=== PATIENT | male | born 1980 | race Hispanic/Latino ===

== ENCOUNTER 2017-04-11 14:10 | Emergency (ER) | payer MEDICAID ==
[2017-04-11 14:16] VITALS: BMI 25.4
[2017-04-11 14:19] VITALS: TEMP 99.2
[2017-04-11] MEDS ORDERED: Sodium Chloride 0.9% 1,000 ML IV STA (14:46)
[2017-04-11 15:01] VITALS: RESP 18
[2017-04-11] MEDS ORDERED: Iohexol 240 (50 ml) ONE (15:23)
[2017-04-11 15:42] LABS: ADD MANUAL DIFF? NO
--- NOTE | 2017-04-11 15:44 | ED PDOC ---
Arrival/HPI - General Historian: Patient - History of Present Illness Time/Duration: < week Symptom Onset: Gradual Symptom Course: Unchanged Quality: Aching Severity Level: 5 Activities at Onset: Rest Context: Home - General Chief Complaint: Abdominal Pain Time Seen by Provider: 04/11/17 14:40 - History of Present Illness Narrative History of Present Illness (Text): 04/11/17 15:36 This is a 36Y M with PMH schizophrenia, anxiety who came to ED for abdominal pain x 3 days. Patient reports he has been having diarrhea and suprapubic pain for the past 3 days. He denies fever, chills, n/v, dysuria, hematuria or penile discharge. He reports that the pain is intermittent and does not radiate. The patient says he has blood on the toilet paper when he wipes. He also says he is not taking his psych medication because his mother told him it was bad for him. He does hear voices but does not have any suicidal or homicidal ideation. ( Aimee Jackson) Past Medical History - Provider Review Nursing Documentation Reviewed: Yes - Psychiatric Hx Depression: No Hx Emotional Abuse: No Hx Physical Abuse: No Hx Substance Use: No - Anesthesia Hx Anesthesia: No - Suicidal Assessment Feels Threatened In Home Enviroment: No Family/Social History - Physician Review Nursing Documentation Reviewed: Yes Family/Social History: No Known Family HX Smoking Status: Light Smoker < 10 Cigarettes Daily Hx Alcohol Use: Yes Frequency of alcohol use: Few days per week Hx Substance Use: No Hx Substance Use Treatment: No Allergies/Home Meds Allergies/Adverse Reactions: Allergies No Known Allergies Allergy (Verified 04/11/17 14:16) Review of Systems - Physician Review All systems were reviewed & negative as marked: Yes - Review of Systems Constitutional: Normal. absent: Fatigue, Fevers Eyes: Normal. absent: Vision Changes ENT: Normal. absent: Hearing Changes Respiratory: Normal. absent: SOB, Cough Cardiovascular: Normal. absent: Chest Pain, Palpitations, Edema Gastrointestinal: Abdominal Pain, Diarrhea. absent: Nausea, Vomiting Genitourinary Male: Normal. absent: Dysuria, Frequency, Hematuria Musculoskeletal: Normal. absent: Arthralgias, Back Pain Skin: Normal. absent: Rash, Pruritis Neurological: Normal. absent: Headache, Dizziness Endocrine: Normal. absent: Diaphoresis Psychiatric: Normal. absent: Anxiety, Depression, Suicidal Ideation Physical Exam Vital Signs Reviewed: Yes Temperature: Afebrile Blood Pressure: Normal Pulse: Regular Respiratory Rate: Normal Appearance: Positive for: Well-Appearing, Non-Toxic, Comfortable Pain Distress: None Mental Status: Positive for: Alert and Oriented X 3 - Systems Exam Head: Present: Atraumatic, Normocephalic Pupils: Present: PERRL Extroacular Muscles: Present: EOMI Conjunctiva: Present: Normal Mouth: Present: Moist Mucous Membranes Neck: Present: Normal Range of Motion Respiratory/Chest: Present: Clear to Auscultation, Good Air Exchange. No: Respiratory Distress, Accessory Muscle Use Cardiovascular: Present: Regular Rate and Rhythm, Normal S1, S2. No: Murmurs Abdomen: Present: Tenderness, Normal Bowel Sounds. No: Distention, Peritoneal Signs, Rebound, Guarding Back: Present: Normal Inspection Upper Extremity: Present: Normal Inspection. No: Cyanosis, Edema Lower Extremity: Present: Normal Inspection. No: Edema Neurological: Present: GCS=15, CN II-XII Intact, Speech Normal Skin: Present: Warm, Dry, Normal Color. 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 Differential Diagnosis included but are not limited to: colitis vs. diverticulitis vs. UTI Plan: -- CBC, CMP, U/A -- EKG -- CT abd/pelvis. -- IVF -- Reassess and disposition Prior Visits: Notes and results from previous visits were reviewed. 04/11/17 15:49 Progress Note: All labs within normal limits. Patient denies having any pain right now. Ct abd/ pelvis within normal limits. 04/11/17 17:47 Re-evaluation: Discussed results and plan with patient. Patient understands results and is agreeable with plan. All questions answered. 04/11/17 17:51 (Aimee Jackson) Patient Seen With Resident: In agreement with resident note which contains more details about the patient. Patient was seen and evaluated with resident. Came up with plan and treatment together. (Obey Painter DO) - Lab Interpretations Lab Results: 04/11/17 15:30 04/11/17 15:30 Lab Results 04/11/17 15:30: Sodium 139, Potassium 4.0, Chloride 104, Carbon Dioxide 27, Anion Gap 12, BUN 10, Creatinine 0.8, Est GFR ( Amer) > 60, Est GFR (Non- Af Amer) > 60, Random Glucose 85, Calcium 9.5, Total Bilirubin 0.6, AST 24, ALT 32, Alkaline Phosphatase 51, Total Protein 7.1, Albumin 4.4, Globulin 2.8, Albumin/Globulin Ratio 1.6, Lipase 199 04/11/17 15:30: WBC 5.8, RBC 4.64, Hgb 14.7, Hct 42.6, MCV 91.8, MCH 31.7, MCHC 34.5, RDW 12.8, Plt Count 218, MPV 11.3 H, Gran % 71.4 H, Lymph % (Auto) 19.0 L , [place] % (Auto) 7.8 H, Eos % (Auto) 1.6, Baso % (Auto) 0.2, Gran # 4.14, Lymph # 1.1 L, [place] # 0.5, Eos # 0.1, Baso # 0.01 04/11/17 15:20: Urine Color Light yellow, Urine Appearance Clear, Urine pH 6.5, Ur Specific [place] 1.010, Urine Protein Negative, Urine Glucose (UA) Negative, Urine Ketones 15 H, Urine Blood Negative, Urine Nitrate Negative, Urine Bilirubin Negative, Urine Urobilinogen 0.2, Ur Leukocyte Esterase Negative - RAD Interpretation Narrative RAD Interpretations (Text): PROCEDURE: CT Abdomen and Pelvis with contrast HISTORY: Unspecified abdominal pain. COMPARISON: None. TECHNIQUE: Contrast dose: 100 cc Omnipaque 300. Radiation dose: Total exam DLP = mGy-cm. This CT exam was performed using one or more of the following dose reduction techniques: Automated exposure control, adjustment of the mA and/or kV according to patient size, and/or use of iterative reconstruction technique. FINDINGS: LOWER THORAX: Unremarkable. LIVER: Hepatic steatosis. No focal masses. No intrahepatic bile duct dilatation or perihepatic ascites. With focal fatty sparing falciform ligament region. GALLBLADDER AND BILE DUCTS: Unremarkable. PANCREAS: Unremarkable. No gross lesion or ductal dilatation. SPLEEN: Unremarkable. ADRENALS: Unremarkable. No mass. KIDNEYS AND URETERS: Unremarkable. No hydronephrosis. No solid mass. VASCULATURE: Unremarkable. No aortic aneurysm. BOWEL: Unremarkable. No obstruction. No gross mural thickening. APPENDIX: Normal appendix. PERITONEUM: Unremarkable. No free fluid. No free air. LYMPH NODES: Unremarkable. No enlarged lymph nodes. BLADDER: Unremarkable. REPRODUCTIVE: Unremarkable. BONES: No acute fracture. OTHER FINDINGS: None. IMPRESSION: No acute findings related to/accounting for the clinical presentation. (Aimee Jackson) Radiology Orders: 04/11/17 15:16 ABD PELVIS PO & IV CONTRAST [CT] Stat - EKG Interpretation EKG Interpretation (Text): 04/11/17 16:42 HR 54. Intervals normal. Sinus bradycardia with incomplete RBBB. (Aimee Jackson) - Medication Orders Current Medication Orders: Discontinued Medications Sodium Chloride (Sodium Chloride 0.9%) 1,000 mls @ 1,000 mls/hr IV .Q1H STA Stop: 04/11/17 15:45 Last Admin: 04/11/17 14:50 Dose: 1,000 mls/hr Iohexol (Omnipaque 240 (50 Ml)) Confirm Administered Dose 50 ml .ROUTE .STK-MED ONE Stop: 04/11/17 15:24 Iohexol (Omnipaque 350 100 Ml) Confirm Administered Dose 350 mg .ROUTE .STK-MED ONE Stop: 04/11/17 17:10 Disposition/Present on Arrival - Present on Arrival Any Indicators Present on Arrival: No History of DVT/PE: No History of Uncontrolled Diabetes: No Urinary Catheter: No History of Decub. Ulcer: No History Surgical Site Infection Following: None - Disposition Have Diagnosis and Disposition been Completed?: Yes Disposition Time: 17:43 Patient Plan: Discharge - Disposition Diagnosis: Diarrhea Disposition: HOME/ ROUTINE Condition: GOOD Discharge Instructions (ExitCare): Loperamide (By mouth), Acute Diarrhea (ED) Print Language: ARABIC Additional Instructions: Mr. Davila, thank you for letting us take care of you today. Your provider was Dr. Jackson. You were treated for abdominal pain and diarrhea. The emergency medical care you received today was directed at your acute symptoms. If you were prescribed any medication, please fill it and take as directed. It may take several days for your symptoms to resolve. Return to the Emergency Department if your symptoms worsen, do not improve, or if you have any other problems. Please contact your doctor or call one of the physicians/clinics you have been referred to that are listed on the Patient Visit Information form that is included in your discharge packet. Bring any paperwork you were given at discharge with you along with any medications you are taking to your follow up visit. Our treatment cannot replace ongoing medical care by a primary care provider (PCP) outside of the emergency department. Thank you for allowing the [facility] team to be part of your care today. If you had an X-Ray or CT scan: A Radiologist will review the ED reading if any change in treatment is needed we will contact you. Prescriptions: Loperamide [Imodium] 2 mg PO Q8H PRN #15 cap PRN Reason: Diarrhea Referrals: PCP,NO [Primary Care Provider] - Follow up with primary [facility] [Outside] - Follow up with primary
[2017-04-11 15:51] LABS: BASO # 0.01 K/mm3 (0.0-2.0); BASO % 0.2 % (0.0-3.0); EOS # 0.1 (0.0-0.7); EOS % 1.6 % (1.5-5.0); GRAN # 4.14 (1.4-6.5); GRAN % 71.4 % (50.0-68.0); HEMATOCRIT 42.6 % (42.0-52.0); LYMPH # 1.1 (1.2-3.4); MEAN CELL VOLUME 91.8 fL (80.0-105.0); MEAN CORPUSCULAR HEMOGLOBIN 31.7 pg (25.0-35.0); MEAN CORPUSCULAR HGB CONC 34.5 g/dl (31.0-37.0); MEAN PLATELET VOLUME 11.3 fl (7.0-11.0); MONO # 0.5 (0.1-0.6); MONO % 7.8 % (1.0-6.0); PLATELET COUNT 218 10^3/uL (120.0-450.0); RED CELL DISTRIBUTION WIDTH 12.8 % (11.5-14.5); WHITE BLOOD COUNT 5.8 10^3/ul (4.5-11.0)
[2017-04-11 15:53] LABS: PH,URINE 6.5 (4.7-8.0); URINE BILIRUBIN NEGATIVE (NEGATIVE); URINE BLOOD NEGATIVE (NEGATIVE); URINE GLUCOSE (UA) NEGATIVE (NEGATIVE); URINE KETONE 15 mg/dL (NEGATIVE); URINE LEUKOCYTE ESTERASE NEGATIVE Leu/uL (NEGATIVE); URINE PROTEIN NEGATIVE mg/dL (<30 mg/dL); URINE UROBILINOGEN 0.2 E.U./dL (<1 E.U./dL)
[2017-04-11 15:58] LABS: URINE APPEARANCE CLEAR (CLEAR); URINE COLOR LIGHT YELLOW (YELLOW)
[2017-04-11 16:01] LABS: ALB/GLOB RATIO 1.6 (1.1-1.8); ALKALINE PHOSPHATASE 51 U/L (38-133); ALT/SGPT 32 U/L (7-56); AST/SGOT 24 U/L (15-59); BILIRUBIN,TOTAL 0.6 mg/dL (0.2-1.3); BLOOD UREA NITROGEN 10 mg/dL (7-21); CALCIUM 9.5 mg/dL (8.4-10.5); CARBON DIOXIDE 27 mmol/L (21-33); CHLORIDE 104 mmol/L (98-107); GFR AFRICAN-AMERICAN > 60; GLUCOSE,RANDOM 85 mg/dL (70-110); LIPASE 199 U/L (23-300); SODIUM 139 mmol/L (132-148); TOTAL PROTEIN 7.1 g/dL (5.8-8.3)
[2017-04-11] MEDS ORDERED: Iohexol 350 MG/100 ML VIAL ONE (17:09)
--- NOTE | 2017-04-11 17:39 | CT ---
PROCEDURE: CT Abdomen and Pelvis with contrast HISTORY: Unspecified abdominal pain. COMPARISON: None. TECHNIQUE: Contrast dose: 100 cc Omnipaque 300. Radiation dose: Total exam DLP = mGy-cm. This CT exam was performed using one or more of the following dose reduction techniques: Automated exposure control, adjustment of the mA and/or kV according to patient size, and/or use of iterative reconstruction technique. FINDINGS: LOWER THORAX: Unremarkable. LIVER: Hepatic steatosis. No focal masses. No intrahepatic bile duct dilatation or perihepatic ascites. With focal fatty sparing falciform ligament region. GALLBLADDER AND BILE DUCTS: Unremarkable. PANCREAS: Unremarkable. No gross lesion or ductal dilatation. SPLEEN: Unremarkable. ADRENALS: Unremarkable. No mass. KIDNEYS AND URETERS: Unremarkable. No hydronephrosis. No solid mass. VASCULATURE: Unremarkable. No aortic aneurysm. BOWEL: Unremarkable. No obstruction. No gross mural thickening. APPENDIX: Normal appendix. PERITONEUM: Unremarkable. No free fluid. No free air. LYMPH NODES: Unremarkable. No enlarged lymph nodes. BLADDER: Unremarkable. REPRODUCTIVE: Unremarkable. BONES: No acute fracture. OTHER FINDINGS: None. IMPRESSION: No acute findings related to/accounting for the clinical presentation.
[2017-04-11 18:51] VITALS: BP 115/78; PULSE 70; O2SAT 97
--- NOTE | 2017-04-12 14:13 | CARD ---
APPROVED REPORT EKG Measurement Heart [id number] [id number] <Conclusion> Sinus bradycardia Incomplete right bundle branch block Borderline ECG
== END 2017-04-11 18:51 | disposition home or self-care (01) ==
LOC: ED 14:10
DX: R19.7 Diarrhea, unspecified (principal)
CPT/HCPCS: 74177; 80053; 81003; 83690; 85025; 87086; 93005; 96360; 99285; J7040; Q9966; Q9967

== ENCOUNTER 2017-04-18 21:02 | Emergency (ER) | payer MEDICAID ==
[2017-04-18 21:16] VITALS: BMI 22.9
--- NOTE | 2017-04-18 21:21 | ED PDOC ---
Arrival/HPI - General Chief Complaint: Anxiety Time Seen by Provider: 04/18/17 21:05 Historian: Patient - History of Present Illness Narrative History of Present Illness (Text): 04/18/17 21:16 36 year old male whose past medical history includes anxiety and schizophrenia presents to the emergency department complaining of panic attack after drinking 1 beer. He states this feels like his previous panic attacks. Denies suicidal ideation or homicidal ideation. Patient states he feels safe at home. Time/Duration: Prior to Arrival Symptom Onset: Sudden Symptom Course: Unchanged Associated Symptoms (Text): None Past Medical History - Provider Review Nursing Documentation Reviewed: Yes - Cardiac Hx Cardiac Disorders: No - Pulmonary Hx Respiratory Disorders: No - Neurological Hx Neurological Disorder: No - HEENT Hx HEENT Disorder: No - Renal Hx Renal Disorder: No - Endocrine/Metabolic Hx Endocrine Disorders: No - Hematological/Oncological Hx Blood Disorders: No - Integumentary Hx Dermatological Disorder: No - Musculoskeletal/Rheumatological Hx Musculoskeletal Disorders: No - Gastrointestinal Hx Gastrointestinal Disorders: No - Genitourinary/Gynecological Hx Genitourinary Disorders: No - Psychiatric Hx Depression: No Hx Emotional Abuse: No Hx Panic Disorder: Yes Hx Physical Abuse: No Hx Substance Use: No - Anesthesia Hx Anesthesia: No - Suicidal Assessment Feels Threatened In Home Enviroment: No Family/Social History - Physician Review Nursing Documentation Reviewed: Yes Family/Social History: Unknown Family HX Smoking Status: Light Smoker < 10 Cigarettes Daily Hx Alcohol Use: Yes Hx Substance Use: No Hx Substance Use Treatment: No Allergies/Home Meds Allergies/Adverse Reactions: Allergies No Known Allergies Allergy (Verified 04/18/17 21:07) Home Medications: Home Meds Medication Instructions Recorded Confirmed No Known Home Med 04/18/17 04/18/17 Review of Systems - Physician Review All systems were reviewed & negative as marked: Yes Physical Exam - Physical Exam Narrative Physical Exam (Text): - Review of Systems Constitutional: Normal. absent: Fatigue, Weight Change, Fevers Eyes: Normal ENT: Normal Respiratory: Normal absent: SOB, Cough, Sputum Cardiovascular: Normal absent: Chest pain, Palpitations, Syncope Gastrointestinal: Normal absent: Abdominal pain, Diarrhea, Nausea, Vomiting Genitourinary: Normal. absent: Dysuria, Frequency, Hematuria Musculoskeletal: Normal. absent: Arthralgias, Back Pain, Neck Pain Skin: Normal Neurological: Normal absent: Focal Weakness Endocrine: Normal Hemo/Lymphatic: Normal Psychiatric: Panic attack - Physical exam Patient appears age appropriate, speaking full sentences without difficulty - Systems Exam Head: Present: Atraumatic, Normocephalic Pupils: Present: PERRL Extraocular Muscles: Present: EOMI Conjunctiva: Present: Normal Mouth: Present: Moist Mucous Membranes Neck: Present: Normal Range of Motion. No: MIDLINE TENDERNESS, Paraspinal Tenderness Respiratory/Chest: Present: Clear to Auscultation, Good Air Exchange. No: Respiratory Distress, Accessory Muscle Use, Tachypneic Cardiovascular: Present: Regular Rate and Rhythm, Normal S1, S2, Peripheral Pulses Present. No: Murmurs Abdomen: Present: Normal Bowel Sounds, No: Tenderness, Peritoneal Signs, Rebound, Guarding, Distention Back: Present: Normal Inspection. No: Midline Tenderness, Paraspinal Tenderness Upper Extremity: Present: Normal Inspection. No: Cyanosis, Edema Lower Extremity: Present: Normal Inspection. No: Edema Neurological: Present: GCS=15, Speech Normal, cranial nerves II through XII fully intact with no cerebellar abnormality, neuro-sensory fully intact. No focal neurological deficits. Skin: Present: Warm, Dry, Normal Color. No: Rashes Lymphatic: Present: OX3, NI, NC Psychiatric: Present: Alert, Oriented x 3, Normal Concentration Vital Signs Reviewed: Yes Vital Signs Temp Pulse Resp BP Pulse Ox 04/18/17 21:53 95 H 18 131/94 H 95 04/18/17 21:08 98.6 F 100 H 25 H 131/94 H 100 04/18/17 21:06 98.6 F 100 H 25 H 131/94 H 100 Temperature: Afebrile Blood Pressure: Normal Pulse: Regular Respiratory Rate: Tachypneic Appearance: Positive for: Well-Appearing, Non-Toxic, Comfortable Pain Distress: None Mental Status: Positive for: Alert and Oriented X 3 Medical Decision Making ED Course and Treatment: Impression: 36 year old male whose past medical history includes anxiety and schizophrenia presents to the emergency department complaining of panic attack after drinking 1 beer. On physical exam, patient is tremulous. Patient denies any suicidal or homicidal ideations. Plan: -- Ativan -- Reassess and disposition Prior Visits: Notes and results from previous visits were reviewed. Patient last seen in the ED on 04/11/17 for abdominal pain, sent home after no acute findings on labs and CT scan. Progress Notes: 04/18/17 22:02 on reeval, pt states he feels better, anxiety almost resolved asking to see PES worker psych clearance ordered 04/18/17 22:30 patient signed out to Dr. Cardoso in stable condition, pending PES eval, dispo - RAD Interpretation Radiology Orders: 04/18/17 22:01 CHEST PORTABLE [RAD] Stat - Medication Orders Current Medication Orders: Discontinued Medications Lorazepam (Ativan) 2 mg IM ONCE ONE Stop: 04/18/17 21:12 Last Admin: 04/18/17 21:20 Dose: 2 mg Lorazepam (Ativan) Confirm Administered Dose 2 mg .ROUTE .STK-MED ONE Stop: 04/18/17 21:13 Last Admin: 04/18/17 21:14 Dose: - Scribe Statement The provider has reviewed the documentation as recorded by the Germain Licona Provider Scribe Attestation: All medical record entries made by the Scribe were at my direction and personally dictated by me. I have reviewed the chart and agree that the record accurately reflects my personal performance of the history, physical exam, medical decision making, and the department course for this patient. I have also personally directed, reviewed, and agree with the discharge instructions and disposition. Disposition/Present on Arrival - Present on Arrival Any Indicators Present on Arrival: No History of DVT/PE: No History of Uncontrolled Diabetes: No Urinary Catheter: No History of Decub. Ulcer: No History Surgical Site Infection Following: None - Disposition Have Diagnosis and Disposition been Completed?: Yes Diagnosis: Anxiety Disposition Time: 22:30 Condition: STABLE
--- NOTE | 2017-04-18 22:23 | ED PDOC ---
Physical Exam - Physical Exam Narrative Physical Exam (Text): 04/18/17 22:23 Signed out to me at end of shift pending PES evaluation. EKG NSR 85 bpm, no ST/T wave changes. CXR no acute disease. 04/19/17 01:13 Medically cleared. PES called. 04/19/17 03:41 Evaluated by PES, Dr. Piña recommends discharge and has arranged a follow up appointment tomorrow. Vital Signs Temp Pulse Resp BP Pulse Ox 04/19/17 03:30 64 18 154/69 H 97 04/19/17 01:55 98.2 F 85 17 135/71 100 04/18/17 21:53 95 H 18 131/94 H 95 04/18/17 21:08 98.6 F 100 H 25 H 131/94 H 100 04/18/17 21:06 98.6 F 100 H 25 H 131/94 H 100 Temperature: Afebrile Blood Pressure: Hypertensive Pulse: Tachycardic Respiratory Rate: Tachypneic Appearance: Positive for: Well-Appearing, Non-Toxic, Comfortable Pain Distress: None Mental Status: Positive for: Alert and Oriented X 3 Medical Decision Making - Lab Interpretations Lab Results: 04/18/17 22:20 04/18/17 22:20 Lab Results 04/18/17 23:57: Urine Opiates Screen Negative, Urine Methadone Screen Negative, Ur Barbiturates Screen Negative, Ur Phencyclidine Scrn Negative, Ur Amphetamines Screen Negative, U Benzodiazepines Scrn Negative, U Oth Cocaine Metabols Negative, U Cannabinoids Screen Negative 04/18/17 23:57: Urine Color Yellow, Urine Appearance Clear, Urine pH 6.0, Ur Specific [place] >= 1.030, Urine Protein Trace H, Urine Glucose (UA) Negative, Urine Ketones 40 H, Urine Blood Negative, Urine Nitrate Negative, Urine Bilirubin Small H, Urine Urobilinogen 1.0 H, Ur Leukocyte Esterase Negative, Urine RBC 0 - 2, Urine WBC 0 - 2, Ur Epithelial Cells None 04/18/17 22:20: Alcohol, Quantitative 19 H 04/18/17 22:20: Salicylates < 1 L, Acetaminophen < 10.0 L 04/18/17 22:20: Sodium 140, Potassium 3.2 L, Chloride 103, Carbon Dioxide 27, Anion Gap 13, BUN 13, Creatinine 0.9, Est GFR ( Amer) > 60, Est GFR (Non- Af Amer) > 60, Random Glucose 93, Calcium 9.5, Total Bilirubin 0.6, AST 25, ALT 34, Alkaline Phosphatase 59, Total Protein 7.2, Albumin 4.4, Globulin 2.8, Albumin/Globulin Ratio 1.6 04/18/17 22:20: WBC 7.5 D, RBC 5.11, Hgb 16.1, Hct 47.3, MCV 92.6, MCH 31.5, MCHC 34.0, RDW 12.8, Plt Count 206, MPV 11.1 H, Gran % 76.5 H, Lymph % (Auto) 14.2 L, [place] % (Auto) 7.5 H, Eos % (Auto) 1.7, Baso % (Auto) 0.1, Gran # 5.71, Lymph # 1.1 L, [place] # 0.6, Eos # 0.1, Baso # 0.01 - RAD Interpretation Radiology Orders: 04/18/17 22:01 CHEST PORTABLE [RAD] Stat - Medication Orders Current Medication Orders: Discontinued Medications Lorazepam (Ativan) 2 mg IM ONCE ONE Stop: 04/18/17 21:12 Last Admin: 04/18/17 21:20 Dose: 2 mg Lorazepam (Ativan) Confirm Administered Dose 2 mg .ROUTE .STK-MED ONE Stop: 04/18/17 21:13 Last Admin: 04/18/17 21:14 Dose: Disposition/Present on Arrival - Present on Arrival Any Indicators Present on Arrival: No History of DVT/PE: No History of Uncontrolled Diabetes: No Urinary Catheter: No History of Decub. Ulcer: No History Surgical Site Infection Following: None - Disposition Have Diagnosis and Disposition been Completed?: Yes Diagnosis: Anxiety Disposition: HOME/ ROUTINE Disposition Time: 03:41 Patient Plan: Discharge Patient Problems: Current Active Problems Problem Status Onset Anxiety Acute Condition: STABLE
[2017-04-18 22:49] LABS: ADD MANUAL DIFF? NO
[2017-04-18 23:08] LABS: HEMATOCRIT 47.3 % (42.0-52.0); MEAN CELL VOLUME 92.6 fL (80.0-105.0); MEAN CORPUSCULAR HEMOGLOBIN 31.5 pg (25.0-35.0); PLATELET COUNT 206 10^3/uL (120.0-450.0); RED CELL DISTRIBUTION WIDTH 12.8 % (11.5-14.5); WHITE BLOOD COUNT 7.5 10^3/ul (4.5-11.0)
[2017-04-18 23:09] LABS: BASO # 0.01 K/mm3 (0.0-2.0); BASO % 0.1 % (0.0-3.0); EOS # 0.1 (0.0-0.7); EOS % 1.7 % (1.5-5.0); GRAN # 5.71 (1.4-6.5); GRAN % 76.5 % (50.0-68.0); LYMPH # 1.1 (1.2-3.4); LYMPH % 14.2 % (22.0-35.0); MEAN PLATELET VOLUME 11.1 fl (7.0-11.0); MONO # 0.6 (0.1-0.6); MONO % 7.5 % (1.0-6.0)
[2017-04-18 23:10] LABS: ALB/GLOB RATIO 1.6 (1.1-1.8); ALKALINE PHOSPHATASE 59 U/L (38-133); ALT/SGPT 34 U/L (7-56); AST/SGOT 25 U/L (15-59); BILIRUBIN,TOTAL 0.6 mg/dL (0.2-1.3); BLOOD UREA NITROGEN 13 mg/dL (7-21); CALCIUM 9.5 mg/dL (8.4-10.5); CARBON DIOXIDE 27 mmol/L (21-33); CHLORIDE 103 mmol/L (98-107); GFR AFRICAN-AMERICAN > 60; GLUCOSE,RANDOM 93 mg/dL (70-110); POTASSIUM 3.2 mmol/L (3.6-5.0); SODIUM 140 mmol/L (132-148); TOTAL PROTEIN 7.2 g/dL (5.8-8.3)
[2017-04-19 00:15] LABS: URINE BILIRUBIN SMALL (NEGATIVE); URINE BLOOD NEGATIVE (NEGATIVE); URINE GLUCOSE (UA) NEGATIVE (NEGATIVE); URINE KETONE 40 mg/dL (NEGATIVE); URINE LEUKOCYTE ESTERASE NEGATIVE Leu/uL (NEGATIVE); URINE PROTEIN TRACE mg/dL (<30 mg/dL)
[2017-04-19 00:19] LABS: URINE APPEARANCE CLEAR (CLEAR); URINE COLOR YELLOW (YELLOW)
[2017-04-19 01:09] LABS: URINE RBC 0 - 2 /hpf (0-2)
[2017-04-19 01:10] LABS: URINE WBC 0 - 2 /hpf (0-6)
[2017-04-19 01:56] VITALS: TEMP 98.2
[2017-04-19 03:31] VITALS: BP 154/69; PULSE 64; RESP 18; O2SAT 97
--- NOTE | 2017-04-19 15:50 | CARD ---
APPROVED REPORT EKG Measurement Heart [id number] <Conclusion> Normal sinus rhythm Incomplete right bundle branch block Borderline ECG
--- NOTE | 2017-04-20 08:13 | RAD ---
PROCEDURE: CHEST RADIOGRAPH, 1 VIEW HISTORY: med clearence COMPARISON: None available. FINDINGS: LUNGS: Clear. PLEURA: No pneumothorax or pleural fluid seen. CARDIOVASCULAR: Normal. OSSEOUS STRUCTURES: No significant abnormalities. VISUALIZED UPPER ABDOMEN: Normal. OTHER FINDINGS: None. IMPRESSION: No active disease.
== END 2017-04-19 03:48 | disposition home or self-care (01) ==
LOC: ED 21:02
DX: F41.9 Anxiety disorder, unspecified (principal); F20.9 Schizophrenia, unspecified
CPT/HCPCS: 71010; 80053; 80320; 80324; 80329; 80345; 80346; 80349; 80353; 80358; 80361; 81001; 83992; 85025; 90791; 93005; 96372; 99284; J2060

== ENCOUNTER 2017-09-23 20:16 | Inpatient (IN) | payer MEDICAID ==
[2017-09-23 20:21] VITALS: BMI 22.8
--- NOTE | 2017-09-23 20:29 | ED PDOC ---
Arrival/HPI <SheilaAlvin parks - Last Filed: 09/23/17 21:17> <Jesse Ravi - Last Filed: 09/23/17 23:07> - General Chief Complaint: Anxiety Time Seen by Provider: 09/23/17 20:17 - History of Present Illness Narrative History of Present Illness (Text): CC: Anxiety This patient is a 37yo M who has been seen at [facility] multiple times in the past for anxiety attacks who is coming in with the feeling of anxiety. Patient states he was at home watching tv and felt like he would be safer at the hospital. Denies intent to hurt himself or others, is not hearing or seeing voices. Does not have an outpatient psychiatrist. Is not on any medications that he can name Collateral info from mother; patient was apparently in [place] recently and one of his friends recommended that he stop taking his olanzapine because medicines are bad. Mom noticed that son has lost a lot of weight, internally preocuppied, keeping to himself more than usual. no other family history of mental illness from mom. 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 Patients mother also states he was taking Carbamazepine intermittently that she was giving him but did not see any results from him taking that medicine. 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, denies smoking (although says he smokes in the computer from previous visits)/etoh/illicit drugs (Jesse Ravi) Past Medical History - Provider Review Nursing Documentation Reviewed: Yes - Travel History Have you recently traveled outside [place] w/in the past 3 mons?: No - Past History Past History: No Previous - Cardiac Hx Cardiac Disorders: No - Pulmonary Hx Respiratory Disorders: No - Neurological Hx Neurological Disorder: No - HEENT Hx HEENT Disorder: No - Renal Hx Renal Disorder: No - Endocrine/Metabolic Hx Endocrine Disorders: No - Hematological/Oncological Hx Blood Disorders: No - Integumentary Hx Dermatological Disorder: No - Musculoskeletal/Rheumatological Hx Musculoskeletal Disorders: No - Gastrointestinal Hx Gastrointestinal Disorders: No - Genitourinary/Gynecological Hx Genitourinary Disorders: No - Psychiatric Hx Depression: No Hx Emotional Abuse: No Hx Panic Disorder: Yes Hx Physical Abuse: No Hx Substance Use: No - Anesthesia Hx Anesthesia: No - Suicidal Assessment Feels Threatened In Home Enviroment: No <Jesse Ravi - Last Filed: 09/23/17 23:07> Family/Social History - Physician Review Nursing Documentation Reviewed: Yes Family/Social History: No Known Family HX Smoking Status: Light Smoker < 10 Cigarettes Daily Hx Alcohol Use: Yes Hx Substance Use: No Hx Substance Use Treatment: No <Jesse Ravi - Last Filed: 09/23/17 23:07> Allergies/Home Meds <Alvin Fishman - Last Filed: 09/23/17 21:17> <Jesse Ravi - Last Filed: 09/23/17 23:07> Allergies/Adverse Reactions: Allergies No Known Allergies Allergy (Verified 04/18/17 21:07) Home Medications: Home Meds Medication Instructions Recorded Confirmed No Known Home Med 04/18/17 09/23/17 Review of Systems - Review of Systems Constitutional: absent: Fatigue, Weight Change, Fevers Eyes: absent: Vision Changes, Photophobia ENT: absent: Hearing Changes, Tinnitus Respiratory: absent: SOB, Cough Cardiovascular: absent: Chest Pain, Palpitations Gastrointestinal: absent: Abdominal Pain Genitourinary Male: absent: Dysuria, Frequency Musculoskeletal: absent: Arthralgias Skin: absent: Rash Neurological: absent: Headache, Dizziness Endocrine: absent: Diaphoresis, Polyuria Hemo/Lymphatic: absent: Adenopathy, Easy Bleeding Psychiatric: Anxiety. absent: Depression, Suicidal Ideation <Jesse Ravi - Last Filed: 09/23/17 23:07> Physical Exam Vital Signs Reviewed: Yes Temperature: Afebrile Blood Pressure: Normal Pulse: Regular Respiratory Rate: Normal Appearance: Positive for: Non-Toxic Mental Status: Positive for: Alert and Oriented X 3 - Systems Exam Head: Present: Atraumatic Pupils: Present: PERRL Extroacular Muscles: Present: EOMI Conjunctiva: Present: Normal Mouth: Present: Moist Mucous Membranes Pharnyx: No: ERYTHEMA, EXUDATE Neck: Present: Normal Range of Motion Respiratory/Chest: Present: Clear to Auscultation. No: Good Air Exchange Cardiovascular: Present: Regular Rate and Rhythm. No: Murmurs Abdomen: No: Tenderness, Distention Back: No: CVA Tenderness Upper Extremity: Present: Normal Inspection. No: Cyanosis, Edema Lower Extremity: Present: Normal Inspection. No: Edema, CALF TENDERNESS Neurological: Present: GCS=15, CN II-XII Intact. No: Speech Normal (speech is depressed, anxious, breathing fast) Skin: Present: Warm Psychiatric: Present: Alert, Oriented x 3, Anxious. No: Normal Insight, Suicidal Ideation, Homicidal Ideation, Delusional <Jesse Ravi - Last Filed: 09/23/17 23:07> Vital Signs Temp Pulse Resp BP Pulse Ox 09/23/17 20:26 98.1 F 76 18 134/85 99 09/23/17 20:20 98.1 F 75 18 134/85 99 Medical Decision Making <Alvin Fishman - Last Filed: 09/23/17 21:17> - Lab Interpretations I have reviewed the lab results: Yes <Jesse Ravi - Last Filed: 09/23/17 23:07> ED Course and Treatment: Patient Seen With Resident: In agreement with resident note. Patient was seen and evaluated with resident, came up with plan and treatment together. A 37 year old male with anxiety. Additional HPI as noted by resident. On physical exam, patient is anxious, depressed and breathing fast. PES will evaluate. Ordered EKG, labs and urinalysis. (Alvin Fishman) 09/23/17 20:32 DD Anxiety attack vs Depression Will have PES evaluate Patient refused PO ativan Pending EKG Dispo and Reassess 09/23/17 21:15 Patient is refusing blood work at this time 09/23/17 22:15 CBC CMP UA Utox and EKG are WNL pending PES 09/23/17 22:32 pending PES 09/23/17 22:46 patient is requesting voluntary admission to the psychiatric unit 09/23/17 23:06 Patient is being voluntarily admitted to psych (Jesse Ravi) - Lab Interpretations Lab Results: 09/23/17 21:00 09/23/17 21:00 Lab Results 09/23/17 21:00: Alcohol, Quantitative < 10 09/23/17 21:00: Salicylates < 1 L, Acetaminophen < 10.0 L 09/23/17 21:00: Sodium 142, Potassium 3.6, Chloride 106, Carbon Dioxide 27, Anion Gap 13, BUN 17, Creatinine 0.7 L, Est GFR ( Amer) > 60, Est GFR ( Non-Af Amer) > 60, Random Glucose 113 H, Calcium 9.8, Total Bilirubin 0.5, AST 22, ALT 37, Alkaline Phosphatase 63, Total Protein 7.1, Albumin 4.4, Globulin 2.7, Albumin/Globulin Ratio 1.6 09/23/17 21:00: Urine Color Yellow, Urine Appearance Clear, Urine pH 6.0, Ur Specific Fowler 1.025, Urine Protein Negative, Urine Glucose (UA) Negative, Urine Ketones Negative, Urine Blood Negative, Urine Nitrate Negative, Urine Bilirubin Negative, Urine Urobilinogen 0.2, Ur Leukocyte Esterase Negative 09/23/17 21:00: WBC 6.2, RBC 4.68, Hgb 14.9, Hct 42.6, MCV 91.0, MCH 31.8, MCHC 35.0, RDW 12.4, Plt Count 232, MPV 11.0, Gran % 60.8, Lymph % (Auto) 29.6, Woods % (Auto) 7.8 H, Eos % (Auto) 1.5, Baso % (Auto) 0.3, Gran # 3.76, Lymph # 1.8, Woods # 0.5, Eos # 0.1, Baso # 0.02 09/23/17 20:30: Urine Opiates Screen Negative, Urine Methadone Screen Negative, Ur Barbiturates Screen Negative, Ur Phencyclidine Scrn Negative, Ur Amphetamines Screen Negative, U Benzodiazepines Scrn Negative, U Oth Cocaine Metabols Negative, U Cannabinoids Screen Negative - RAD Interpretation Radiology Orders: 09/23/17 22:45 HEAD W/O CONTRAST [CT] Stat - Medication Orders Current Medication Orders: Discontinued Medications Lorazepam (Ativan) 1 mg PO ONCE ONE PRN Reason: Protocol Stop: 09/23/17 20:23 - Scribe Statement The provider has reviewed the documentation as recorded by the Scribe <Alvin Fishman - Last Filed: 09/23/17 21:17> <Jesse Ravi - Last Filed: 09/23/17 23:07> - Scribe Statement Michael Lyles All medical record entries made by the Scribe were at my direction and personally dictated by me. I have reviewed the chart and agree that the record accurately reflects my personal performance of the history, physical exam, medical decision making, and the department course for this patient. I have also personally directed, reviewed, and agree with the discharge instructions and disposition. (Alvin Fishman) Disposition/Present on Arrival <Alvin Fishman - Last Filed: 09/23/17 21:17> - Present on Arrival Any Indicators Present on Arrival: No History of DVT/PE: No History of Uncontrolled Diabetes: No Urinary Catheter: No History Surgical Site Infection Following: None - Disposition Have Diagnosis and Disposition been Completed?: Yes Disposition Time: 23:07 Patient Plan: Admission <Jesse Ravi - Last Filed: 09/23/17 23:07> - Disposition Diagnosis: Anxiety, Schizophrenia Disposition: HOSPITALIZED Patient Problems: Current Active Problems Problem Status Onset Anxiety Acute Condition: FAIR Referrals: PCP,NO [Primary Care Provider] - Follow up with primary Forms: [email or web address] (Icelandic)
[2017-09-23 21:46] LABS: BASO # 0.02 K/mm3 (0.0-2.0); BASO % 0.3 % (0.0-3.0); EOS # 0.1 (0.0-0.7); EOS % 1.5 % (1.5-5.0); GRAN # 3.76 (1.4-6.5); GRAN % 60.8 % (50.0-68.0); HEMATOCRIT 42.6 % (42.0-52.0); LYMPH # 1.8 (1.2-3.4); LYMPH % 29.6 % (22.0-35.0); MEAN CORPUSCULAR HEMOGLOBIN 31.8 pg (25.0-35.0); MONO # 0.5 (0.1-0.6); MONO % 7.8 % (1.0-6.0); RED CELL DISTRIBUTION WIDTH 12.4 % (11.5-14.5); WHITE BLOOD COUNT 6.2 10^3/ul (4.5-11.0)
[2017-09-23 21:47] LABS: URINE BILIRUBIN NEGATIVE (NEGATIVE); URINE BLOOD NEGATIVE (NEGATIVE); URINE GLUCOSE (UA) NEGATIVE (NEGATIVE); URINE KETONE NEGATIVE (NEGATIVE); URINE LEUKOCYTE ESTERASE NEGATIVE Leu/uL (NEGATIVE); URINE PROTEIN NEGATIVE mg/dL (<30 mg/dL); URINE UROBILINOGEN 0.2 E.U./dL (<1 E.U./dL)
[2017-09-23 21:49] LABS: URINE APPEARANCE CLEAR (CLEAR); URINE COLOR YELLOW (YELLOW)
[2017-09-23 22:07] LABS: ALB/GLOB RATIO 1.6 (1.1-1.8); ALKALINE PHOSPHATASE 63 U/L (38-126); ALT/SGPT 37 U/L (7-56); AST/SGOT 22 U/L (17-59); BILIRUBIN,TOTAL 0.5 mg/dL (0.2-1.3); BLOOD UREA NITROGEN 17 mg/dL (7-21); CALCIUM 9.8 mg/dL (8.4-10.5); CARBON DIOXIDE 27 mmol/L (21-33); CHLORIDE 106 mmol/L (98-107); GFR AFRICAN-AMERICAN > 60; GLUCOSE,RANDOM 113 mg/dL (70-110); POTASSIUM 3.6 mmol/L (3.6-5.0); SODIUM 142 mmol/L (132-148); TOTAL PROTEIN 7.1 g/dL (5.8-8.3)
[2017-09-24] MEDS ORDERED: Alum-Mag Hydrox-Simethicone Susp (30 mL) PO PRN (00:11)
[2017-09-24] MEDS ORDERED: Magnesium Hydroxide Susp 30 ml UD PO PRN (00:11)
--- NOTE | 2017-09-24 05:57 | PCM.BM ---
Treatment Plan Problems - Problems identified on initial assessmt PANIC ATTACKS Date Initiated: 09/24/17 Time Initiated: 00:00 Assessment reference: NA Status: Active ANXIETY Date Initiated: 09/24/17 Assessment reference: NA Status: Active Treatment assets and liabiliti Patient Assests: adapts well, cooperative, educated, motivated, self-reliant, ADL independent, physically healthy, good support system, cognitively intact Patient Liabilities: financial problems - Milieu Protocol Maintain good personal hygiene: daily Encourage regular showers, every shift Remind patient to perform daily oral care, every shift Assist patient to perform ADL's Maintain personal safety: every shift Educate patient to report safety concerns to staff, every shift Monitor environment for contraband/sharps Medication safety: Monitor for expected outcome, potential side effects: every shift, Assess barriers to learning: every shift, Assess readiness for medication education: every shift Family Contact Family involvement: Family/SO is involved Family contact: Patient agrees to contact Discharge/Continuing Care - Education Needs Education Needs: Patient Medication, Patient Diagnosis/Disease Process, Patient Coping Skills, Patient Health Practices/Safety - Discharge Discharge Criteria: Tolerates medication w/o severe side effects, Free of Suicidal thoughts, Free of Homicidal thoughts, Free of agitation, Normal sleep pattern
[2017-09-24 08:01] LABS: CHOLESTEROL 194 mg/dL (130-200); GLUCOSE,FASTING 95 mg/dL (65-110)
--- NOTE | 2017-09-24 11:54 | CARD ---
APPROVED REPORT EKG Measurement Heart [id number] <Conclusion> Normal sinus rhythm Incomplete right bundle branch block Borderline ECG
--- NOTE | 2017-09-24 20:36 | PCM.PSYCH ---
Initial Psychiatric Evaluation - Initial Psychiatric Evaluation Legal Status: Capacity Chief Complaint (in patient's own words): Vague about indicate some feelings of depression Patient's Reaction to Hospitalization: Patient seems perplexed by entire proceedings History of Present Illness and Precipitating Events: Uncertain at this time the patient appears to be withdrawn, having focusing and concentrating difficulties and is a vague historian with poor insight Current Medications: Active Medications Generic Name Dose Route Start Last Admin Trade Name Freq PRN Reason Stop Dose Admin Acetaminophen 650 mg 09/24/17 00:11 Tylenol 325mg Tab PO Q4H PRN Pain, Mild (1-3) Al Hydrox/Mg Hydrox/Simethicone 30 ml 09/24/17 00:11 Maalox Plus 30 Ml PO DAILY PRN Upset Stomach Clonazepam 0.5 mg 09/24/17 08:00 09/24/17 17:20 Klonopin PO 0.5 mg BID EARL Administration Protocol Magnesium Hydroxide 30 ml 09/24/17 00:11 Milk Of Magnesia PO DAILY PRN Constipation Olanzapine 2.5 mg 09/24/17 00:12 Zyprexa PO HS PRN Anxiety Protocol Olanzapine 5 mg 09/24/17 22:00 Zyprexa PO HS EARL Protocol Ziprasidone 20 mg 09/24/17 00:15 Geodon Inj IM Q8H PRN Agitation Protocol Past Psychiatric History - Past Psychiatric History Prior Professional Help: Not entirely clear at this juncture. Patient has been on Zyprexa in the [facility] Prior Psychiatric Treatment: Unclear at this juncture History of Abuse: Denies but is a poor historian History of ETOH/Drug Use: Has had a history of cannabis, cocaine and possibly heroin abuse History of Family Illness: Patient denies but is a poor historian Pertinent Medical Hx (Current Medical&Sleep Prob, Allergies): Allergies Allergy/AdvReac Type Severity Reaction Status Date / Time No Known Allergies Allergy Verified 09/24/17 00:11 No Known Home Med 04/18/17 Review of Systems - Constitutional Constitutional: UN - EENT Eyes: UNREMARKABLE Ears: UNREMARKABLE Nose/Mouth/Throat: UNREMARKABLE - Cardiovascular Cardiovascular: UNREMARKABLE - Respiratory Respiratory: UNREMARKABLE - Reproductive: Male Reproductive:Male: UNREMARKABLE - Musculoskeletal Musculoskeletal: UNREMARKABLE - Integumentary Integumentary: UNREMARKABLE - Neurological Neurological: UNREMARKABLE - Psychiatric Psychiatric: Anhedonia, Anxiety, Auditory Hallucinations, Behavioral Changes, Change in Appetite, Confusion, Depression, Difficulty Concentrating, Hallucinations, Panic Attacks - Endocrine Endocrine: UNREMARKABLE - Hematologic/Lymphatic Hematologic: UNREMARKABLE Mental Status Examination - Affect Affect: Blunted - Motor Activity Motor Activity: Psychomotor Retardation - Reliability in Providing Information Reliability in Providing Information: Poor, due to alteration in thoughts - Speech Speech: Tangential - Mood Mood: Depressed - Formal Thought Process Formal Thought Process: Hallucinations - Hallucinations/Delusions Hallucinations: Auditory - Obsessions/Compulsions Obsessions: No Compulsions: No - Cognitive Functions Orientation: Person, Place, Situation, Time Sensorium: Alert Attention/Concentration: Easily distracted Estimate of Intelligence: Average Judgement: Imparied, as evidence by: Other - Risk Risk: Suicidal - Strength & Assets Inventory Strength & Assets Inventory: Intelligence, Education, Employment history - Limitations Limitations: Other DSM 5 DX - DSM 5 DSM 5 Diagnosis: Psychosis not otherwise specified Cocaine use disorder Rule out other substance use disorder Rule out schizoaffective disorder - Recommended/Plan of Treatment Treatment Recommendations and Plan of Treatment: Individual and group milieu therapy and pharmacotherapy while patient engages in period of observation Projected ELOS: 7-10 days Prognosis: Guarded Discharge Plan and Discharge Criteria: We'll refer back to local [facility] upon stabilization - Smoking Cessation Smoking Cessation Initiated: No Reason for not providing: Nonsmoker
--- NOTE | 2017-09-25 10:16 | PN ---
DATE: 09/25/2017 LOCATION: The patient is in the [facility] Unit. SUBJECTIVE: The patient was admitted with history of feeling dizzy. The patient has a history of schizophrenia. He is on medications for behavioral disorder. The patient has no past history of diabetes or hypertension. The patient is seen for medical evaluation. Currently, the patient is on Geodon antipsychotic medication, Klonopin 0.5 mg b.i.d. The patient is on Zyprexa p.r.n. The patient is seen and talked to. The patient is comfortable, pleasant. He says that he feels dizzy. PHYSICAL EXAMINATION: VITAL SIGNS: The pulse is 90, blood pressure 116/74, respirations are 20, O2 sat is 100% on room air, and the patient's temperature is 97.8. HEENT: Head is normocephalic. NECK: The thyroid is not enlarged. Carotid pulses present. LUNGS: Trachea is central. Breath sounds are vesicular. No adventitious sounds. HEART: Normal sinus rhythm, S1 and S2 present. No murmur. EKG shows right bundle branch block, which is intermittent. ABDOMEN: Soft. Liver and spleen not palpable. CENTRAL NERVOUS SYSTEM: He is conscious, rational, and oriented at this time, but he has history of schizophrenia and has been treated for that. NEUROLOGIC: The patient's neurological evaluation does not show any evidence of defective VIII nerve clinically. The patient's cranial nerves are intact from II through XII. Sense of smell is present according to the patient. The patient's motor, sensory functions are within normal limits. Examination of the gait is normal. We will evaluate the blood work, follow up, and if the patient has continued dizziness, we will consider giving the patient Antivert, but it is not ordered at this time. LABORATORY DATA: The patient's blood work that is done, his hemoglobin 14.9, his platelet count is 232,000. Chemistry: The patient's GFR is within normal limits. His lipid profile, cholesterol 194, LDL is 130, TSH is 3.48. ASSESSMENT AND PLAN: The medical evaluation shows the patient has dizziness which is nonspecific at this time. The patient has a right bundle branch block, which is not significant clinically at this stage. We will follow up as necessary. Elma Chaves MD Cory # [id number] HARESH
--- NOTE | 2017-09-26 02:41 | PN ---
DATE: The patient is a 37-year-old white male who has had difficulty in focusing, is a poor historian, has a history of cannabis, cocaine and possibly heroin abuse. He has had psychotic episodes since 2012 and saw a psychiatrist at that time with he denying such cognitive defects prior to that. The patient is a [place]. His mood and affect are considered to be flat and blunted, he is isolative and withdrawn and needs encouragements to interact with group. While insisting on leaving, he has refused to sign a 48-hour notice period. He appears to be internally preoccupied and disorganized. His insight and judgment are considered to be poor. He is presently being maintained on Klonopin 0.5 mg b.i.d., Zyprexa 5 mg bedtime. His vital signs are within normal limits. Biochemical profile was within normal limits. RPR nonreactive. Drug screen negative. Urinalysis clear. A biochemical profile has shown an elevated LDH cholesterol of 130 and elevated random glucose of 113. The patient needs continued care for safety of self and others. Martin Barrera MD/ PhD
--- NOTE | 2017-09-26 17:12 | PN ---
The patient is a 37-year-old white male with a history of polysubstance abuse who has been insisting on leaving. The patient is observed to ambulate in the hallway at times and to be isolative. He has been observed to be sleeping while on rounds. He has being maintained on clonidine 0.5 mg b.i.d., Zyprexa 5 mg bedtime. Blood pressure 112/73, pulse 85, temperature 97.8, respiratory rate 20. Given the patient's insistence on leaving, and his lack of focus, irrationality, an attempt was made to have the patient hospitalized in a situation were his treatment needs can more effectively be applied to this resistant patient. Martin Barrera MD/ PhD
[2017-09-27 06:58] VITALS: O2SAT 98
--- NOTE | 2017-09-27 12:50 | PN ---
LOCATION: The patient is in the behavioral care unit, room 518, bed 1, [facility] in [place]. SUBJECTIVE: He was seen this morning. He is quiet. He has no complaints. PHYSICAL EXAMINATION: VITAL SIGNS: His pulse is 73, blood pressure 115/77, respirations are 17, O2 sat 98% on room air. HEENT: Head is normocephalic. LUNGS: Clear. HEART: Normal sinus rhythm. ABDOMEN: Soft. Liver and spleen not palpable. CENTRAL NERVOUS SYSTEM: Nonfocal deficit. MEDICATIONS: The patient's medications consist of Geodon 20 mg q.8 hours. The patient is on Klonopin 0.25 mg b.i.d. He is also placed on 2.5 mg of Zyprexa at nighttime. He is on a regular diet. Continue current management. Medically, he is stable. BLOOD WORK: His hemoglobin is 14.9. Chemistry: Blood sugar is 113. All of the chemical parameters are within normal limits. His condition is clinically stable. His overall prognosis is dependent on his behavioral disorder. Elma Chaves MD MTDAnurag
--- NOTE | 2017-09-27 16:50 | PCM.PYCHPN ---
Psychiatric Progress Note - Psychiatric Progress Note Patient seen today, length of contact: 25 min Patient Chief Complaint: "okay". Problems Identified/Issues Discussed: I recent notes and met with patient at bedside. Patient appears groomed quiet withdrawn and preoccupied. He is unable to tell me which month or year it is. Patient is aware that he is in [place] . Mood is bluntly reported as "okay". Patient reports that he continues to hallucinate and he will not specify what the voices say to him except that he continues to hear "chatter" Staff notes indicate that patient has kept himself and is unwilling to engage in discussion even when encouraged. He's currently awaiting a bed at [place] as he meets involuntary commitment criteria. Diagnostic Results: Psychosis not otherwise specified Cocaine use disorder Rule out other substance use disorder Rule out schizoaffective disorder Medication Change: No Medical Record Reviewed: Yes Mental Status Examination - Cognitive Function Orientation: Person, Place - Mood Mood: Depressed - Affect Affect: Blunted - Speech Speech: Soft - Formal Thought Process Formal Thought Process: Hallucinations ("chatter") - Suicidal Ideation Suicidal Ideation: No - Homicidal Ideation Homicidal Ideation: No Goal/Treatment Plan - Goal/Treatment Plan Progress Toward Problem(s) and Goals/Treatment Plan: * c/w current tx and plan * Vitals reviewed and noted below: Selected Entries 09/26/17 09/26/17 07:00 16:20 Temperature 97.6 F Pulse Rate 110 H 101 H Respiratory 20 16 Rate Blood Pressure 95/65 L 98/65 L
--- NOTE | 2017-09-28 09:48 | PCM.PYCHPN ---
Psychiatric Progress Note - Psychiatric Progress Note Patient seen today, length of contact: 25 min Patient Chief Complaint: "okay, a little better". Problems Identified/Issues Discussed: I recent notes and met with patient at bedside. Staff notes indicate that patient has been anxious, hallucinating and pacing the unit this weekend. He attempted to elope yesterday and required Geodon 20 mg IM X1. He's currently awaiting a bed at [place] as he meets involuntary commitment criteria. He also refused klonopin stating he didn't need it. Patient appears unkempt, quiet withdrawn and preoccupied during my visit. He is also malodorous. Remains superficial. Still unable to provide the correct month but can give me year and location. Mood is bluntly reported as "okay, a little better". Patient reports that he continues to hallucinate and he will not specify what the voices say to him except that he continues to hear "chatter". Patient agreed to EKG and chest X-ray after initially refusing. Diagnostic Results: Psychosis not otherwise specified Cocaine use disorder Rule out other substance use disorder Rule out schizoaffective disorder Medication Change: No Medical Record Reviewed: Yes Mental Status Examination - Cognitive Function Orientation: Person, Place Attention: Poor Concentration: Poor Association: Loose Fund of Knowledge: Poor - Mood Mood: Depressed ( "okay, a little better".) - Affect Affect: Blunted - Speech Speech: Soft - Formal Thought Process Formal Thought Process: Hallucinations ("chatter") - Suicidal Ideation Suicidal Ideation: No - Homicidal Ideation Homicidal Ideation: No Goal/Treatment Plan - Goal/Treatment Plan Progress Toward Problem(s) and Goals/Treatment Plan: * c/w current tx and plan * Appreciate f/u by Dr. Chaves on 09/27/17~patient is medically stable * Vitals reviewed and noted below: Selected Entries 09/27/17 09/27/17 06:57 16:00 Temperature 97.8 F Pulse Rate 73 81 Respiratory 17 Rate Blood Pressure 115/77 95/65 L O2 Sat by Pulse 98 Oximetry * No new weekend labs * Patient is awaiting open bed at [facility] for involuntary transfer
--- NOTE | 2017-09-28 10:51 | RAD ---
HISTORY: medical clearance COMPARISON: Comparison is made to previous study dated 04/18/2017 FINDINGS: LUNGS: No active pulmonary disease. PLEURA: No significant pleural effusion identified, no pneumothorax apparent. CARDIOVASCULAR: Normal. OSSEOUS STRUCTURES: No significant abnormalities. VISUALIZED UPPER ABDOMEN: Normal. OTHER FINDINGS: None. IMPRESSION: No active disease.
[2017-09-29 07:12] VITALS: RESP 18
[2017-09-29 19:45] VITALS: BP 118/72; PULSE 75; TEMP 98.2
--- NOTE | 2017-09-29 23:38 | CP.PCM.PN ---
Subjective - Date & Time of Evaluation Date of Evaluation: 09/29/17 Time of Evaluation: 23:38 - Subjective Subjective: S:It was requested to get a consent for transfer to [facility]. I explained to patient to sign a consent form , he read the form but would not sign for it. Pertinent medical record was reviewed. O: Last Vital Signs 3 Temp 98.2 F 09/29/17 16:18 Pulse 75 09/29/17 16:18 Resp 18 09/29/17 07:07 BP 118/72 09/29/17 16:18 Pulse Ox 98 09/29/17 07:07 Awake, alert, not in distress. LUNGS:Normal breathing pattern. A: Informed consent refused. P: Patient refused to sign consent form. Objective - Vital Signs/Intake and Output Vital Signs (last 24 hours): Temp Pulse Resp BP Pulse Ox 98.2 F 75 18 118/72 98 09/29/17 16:18 09/29/17 16:18 09/29/17 07:07 09/29/17 16:18 09/29/17 07:07 - Medications Medications: Current Medications Acetaminophen (Tylenol 325mg Tab) 650 mg PO Q4H PRN PRN Reason: Pain, Mild (1-3) Last Admin: 09/27/17 23:32 Dose: 650 mg Al Hydrox/Mg Hydrox/Simethicone (Maalox Plus 30 Ml) 30 ml PO DAILY PRN PRN Reason: Upset Stomach Clonazepam (Klonopin) 0.5 mg PO BID EARL PRN Reason: Protocol Last Admin: 09/29/17 09:27 Dose: Not Given Magnesium Hydroxide (Milk Of Magnesia) 30 ml PO DAILY PRN PRN Reason: Constipation Olanzapine (Zyprexa) 2.5 mg PO HS PRN; Protocol PRN Reason: Anxiety Last Admin: 09/27/17 22:08 Dose: 2.5 mg Olanzapine (Zyprexa) 5 mg PO HS EARL PRN Reason: Protocol Last Admin: 09/29/17 22:05 Dose: Not Given Ziprasidone (Geodon Inj) 20 mg IM Q8H PRN; Protocol PRN Reason: Agitation Last Admin: 09/27/17 23:38 Dose: 20 mg Ziprasidone (Geodon Cap) 20 mg PO Q8H PRN; Protocol PRN Reason: Agitation Last Admin: 09/27/17 22:09 Dose: 20 mg
--- NOTE | 2017-09-30 08:58 | PN ---
DATE: 09/29/2017 SUBJECTIVE: The patient is a 37-year-old white male with a history of polysubstance abuse and agitated and psychotic ideation. The patient has been hyperactive and has attempted to elope. He has been committed involuntarily to [facility] to help take care of his needs which cannot be provided here due to his lack of cooperation. The patient's affect is flat and blunted and he is isolative and withdrawn and internally preoccupied and guarded. He is being maintained on Klonopin 0.5 mg b.i.d., Zyprexa 2.5 mg at bedtime p.r.n. as well as 5 mg at bedtime. The patient is presently in need of a more restrictive setting for protection of self and others. Blood pressure 118/72, pulse 75, temperature 98.2, respiratory rate 18 *------* Martin Barrera MD/ PhD
== END 2017-09-30 01:21 | DRG 430 ==
LOC: ED 20:16 → ERH 23:08 → PSYC 09-24 00:21
PROVIDERS: ADMIT Psychiatry & Neurology Addiction Medicine; ATTEND Psychiatry & Neurology Addiction Medicine
PROC: GZ3ZZZZ Medication Management (ICD-10-PCS; principal; 2017-09-24)
DX: F29 Unspecified psychosis not due to a substance or known physiological condition (principal); F20.9 Schizophrenia, unspecified; F14.90 Cocaine use, unspecified, uncomplicated; F91.9 Conduct disorder, unspecified